=== PATIENT | female | born 1995 | race Caucasian/White ===

== ENCOUNTER 2021-06-04 13:57 | Emergency (ER) | payer BC ==
[~2021-06-04] VITALS: Ht 170.2 cm; Wt 74.8 kg
[2021-06-04] MEDS ORDERED: VITAMIN D21250 MCG PO (16:49)
[2021-06-04] MEDS ORDERED: DOXYCYCLINE HY100 MG PO (20:10)
--- NOTE | 2021-06-04 22:34 | EKG ---
[facility] [address] [facility] [place], [place] [address] Signed Normal sinus rhythm with sinus arrhythmia Normal ECG No previous ECGs available Confirmed by RJ PARRA DO ([id number]) on 06/04/2021 10:33:47 PM Electronically Signed By: RJ PARRA DO 06/04/212233 PATIENT NAME: LAVINIA PEDERSEN Electrocardiogram DATE OF : [birth year] PHYSICIAN: RJ PARRA DO REPORT #: [id number] REPORT IS CONFIDENTIAL AND NOT TO BE RELEASED WITHOUT AUTHORIZATION
== END 2021-06-04 20:24 | disposition home or self-care (01) ==
LOC: ED 13:57
DX: R55 Syncope and collapse (principal); Z88.1 Allergy status to other antibiotic agents; Z79.899 Other long term (current) drug therapy
CPT/HCPCS: 80053; 84703; 85025; 93005; 93010; 99284-25